=== PATIENT | female | born 1990 | race Caucasian/White ===

== ENCOUNTER 2017-04-07 22:16 | Emergency (ER) | payer BC ==
[~2017-04-07] VITALS: Ht 154.9 cm; Wt 56.7 kg
[2017-04-07] MEDS ORDERED: KEFLEX500 MG ORAL (22:36)
--- NOTE | 2017-04-07 22:37 | Emergency Room Report ---
History of Present Illness General Chief Complaint: Female Urogenital Problems Source: Patient Present Illness HPI Is a 26-year-old female with no past medical history. She presents with chief complaint of hematuria. She's been having some dysuria for about a week. Notice some blood in her urine today. She thought she may be on her menstrual flow. She present tampon and it was dry. Has mild urgency and frequency. Lower back pain. No fever chills but no nausea no vomiting. Allergies: Coded Allergies: No Known Allergies (Unverified , 04/07/17) Patient History Past Medical History: none, see triage record, old chart reviewed Past Surgical History: none Pertinent Family History: none Social History: Denies: smoking Now: No Immunizations: other Reviewed Nursing Documentation: PMH: Agreed, PSxH: Agreed Nursing Documentation-PMH Past Medical History: No Stated History Review of Systems Eye: Denies: eye pain, blurred vision ENT: Denies: ear pain, nose congestion, throat swelling Respiratory: Denies: cough, shortness of breath Cardiovascular: Denies: chest pain, palpitations Gastrointestinal: Denies: abdominal pain, diarrhea, nausea, vomiting Genitourinary: Reports: dysuria, hematuria Musculoskeletal: Denies: back pain, joint pain Skin: Denies: rash Neurological: Denies: headache, numbness Endocrine: Denies: increased thirst, increased urine Hematologic/Lymphatic: Denies: easy bruising All Other Systems: negative except mentioned in HPI Physical Exam Vital Signs Date Time Temp Pulse Resp B/P (MAP) Pulse Ox O2 Delivery O2 Flow Rate FiO2 04/07/17 22:20 98.8 82 18 129/77 98 Room Air vitals normal Sp02 EP Interpretation: reviewed, normal General Appearance: well appearing, no apparent distress, alert Head: normocephalic, atraumatic Eyes: bilateral eye PERRL, bilateral eye EOMI ENT: hearing grossly normal, normal pharynx Neck: full range of motion, supple, no meningismus Respiratory: chest non-tender, lungs clear, normal breath sounds Cardiovascular #1: regular rate, rhythm, no murmur Gastrointestinal: normal bowel sounds, non tender, no mass, no organomegaly, no bruit, non-distended Musculoskeletal: back normal, gait/station normal, normal range of motion Psychiatric: mood/affect normal Skin: warm/dry Medical Decision Making Diagnostic Impression: Primary Impression: Cystitis ER Course Patient present with symptoms consistent a UTI/cystitis. She looks very comfortable for ureteral stone. No evidence of pyelonephritis. No evidence of sepsis. We'll discharge home with antibiotics. Urine culture sent. Last Vital Signs Date Time Temp Pulse Resp B/P (MAP) Pulse Ox O2 Delivery O2 Flow Rate FiO2 04/07/17 22:20 98.8 82 18 129/77 98 Room Air Status: unchanged Disposition: HOME, SELF-CARE Condition: Stable Scripts Cephalexin* (KEFLEX*) 500 Mg Capsule 500 MG ORAL TID, #21 CAP 0 Refills Prov: IRISH CERNA M.D. 04/07/17 Patient Instructions: Urinary Tract Infection Additional Instructions: Followup with your Dr. in 7 days. You should feel significantly better in 2 days. If having increasing pain, fever, vomiting, or upper back pain return. We will call you if urine culture showed a resistantn bacteria to your antibiotic. IRISH CERNA M.D. Apr 07, 2017 22:37
[2017-04-07 22:42] VITALS: BP 129/77
[2017-04-07] MEDS ORDERED: Cephalexin 500mg cap ORAL ONE (22:45)
== END 2017-04-07 22:43 | disposition home or self-care (01) ==
LOC: EMR 22:25
DX: N30.91 Cystitis, unspecified with hematuria (principal); R39.15 Urgency of urination; R35.0 Frequency of micturition; R30.0 Dysuria
CPT/HCPCS: 87086; 99283

== ENCOUNTER 2017-04-22 15:51 | Inpatient (IN) | payer BC ==
[~2017-04-22] VITALS: Ht 154.9 cm; Wt 56.7 kg
[~2017-04-22 15:51] MED LIST: KEFLEX500 MG ORAL
[2017-04-22 16:05] VITALS: BP 130/82
[2017-04-22] MEDS ORDERED: Morphine Sulfate 4mg/ml Inj IVP ONE ×2 (16:30→17:45)
[2017-04-22] MEDS ORDERED: Solu-MEDROL 125mg Inj IVP ONE (16:30)
[2017-04-22] MEDS ORDERED: NKM (16:33)
[2017-04-22 16:43] LABS: APPEARANCE,URINE CLEAR; KETONES,URINE NEGATIVE (NEGATIVE); LEUKOCYTE ESTERASE ,URINE 1+ (NEGATIVE); NITRITE,URINE NEGATIVE (NEGATIVE); PH,URINE 6 (4.5-8.0); PROTEIN,URINE NEGATIVE (NEGATIVE); UROBILINOGEN,URINE NORMAL MG/DL (0.0-1.0)
[2017-04-22 16:49] LABS: BASOPHILS % (AUTO) 0.9 % (0.0-2.0); EOSINOPHILS % (AUTO) 0.8 % (0.0-3.0); MEAN CORPUSCULAR HEMOGLOBIN 34.3 PG (27.0-31.0); MEAN CORPUSCULAR HGB CONC 35.7 G/DL (32.0-36.0); MEAN CORPUSCULAR VOLUME 96 FL (80-99); MEAN PLATELET VOLUME 6.2 FL (6.5-10.1); MONOCYTES % (AUTO) 6.5 % (1.0-10.0); PLATELET COUNT 262 K/UL (150-450); RED BLOOD COUNT 4.17 M/UL (4.20-5.40); RED CELL DISTRIBUTION WIDTH 10.7 % (11.6-14.8); WHITE BLOOD COUNT 7.3 K/UL (4.8-10.8)
[2017-04-22 16:51] LABS: RBC,URINE 0-2 /HPF (0 - 2)
[2017-04-22 16:52] LABS: BACTERIA,URINE FEW /HPF; SQUAMOUS EPITHELIAL CELL,UR MODERATE /LPF (NONE/OCC)
[2017-04-22 16:53] LABS: MUCUS,URINE MODERATE /LPF (NONE/OCC)
[2017-04-22 17:10] LABS: ALANINE AMINOTRANSFERASE 13 U/L (3-33); ALBUMIN/GLOBULIN RATIO 1.3 (1.0-2.7); ANION GAP 11 (5-15); ASPARTATE AMINO TRANSFERASE 24 U/L (5-40); CALCIUM 9.9 mg/dL (8.6-10.2); CARBON DIOXIDE 27 mEQ/L (20-30); CHLORIDE 103 mEQ/L (98-107); CREATININE 0.7 mg/dL (0.5-0.9); GLOMERULAR FILTRATION RATE > 60 mL/min (>60); HEMOLYSIS 104; LIPASE 31 U/L (< 60); POTASSIUM 4.7 mEQ/L (3.4-4.9); SODIUM 141 mEQ/L (135-145); TOTAL PROTEIN 7.7 g/dL (6.6-8.7)
[2017-04-22 18:02] VITALS: BP 128/79
[2017-04-22 20:00] VITALS: BP 96/57
--- NOTE | 2017-04-22 20:31 | Emergency Room Report ---
History of Present Illness General Chief Complaint: Nausea, Vomiting, and Diarrhea Source: Patient Present Illness HPI 26-year-old female presents ED complaining of abdominal pain and diarrhea x1 day. Patient has history of ulcerative colitis and states she is having a flareup. Patient recently moved here and does not have a PMD here. Patient states the pain as a 9/10, sharp, nonradiating. Notes blood in her stool. Denies fevers or chills. Denies nausea or vomiting. Patient states her pain is typically relieved with steroids, pain medications and remicade infusion. Denies chest pain or shortness of breath. No other aggravating or leading factors. Denies any other associated symptoms Allergies: Coded Allergies: No Known Allergies (Unverified , 04/07/17) Patient History Past Medical History: other - colitis Past Surgical History: none Pertinent Family History: none Social History: Denies: smoking, alcohol use, drug use Last Menstrual Period: 04/14/17 Now: No Immunizations: UTD Reviewed Nursing Documentation: PMH: Agreed, PSxH: Agreed Nursing Documentation-PMH Past Medical History: No History, Except For Hx Gastrointestinal Problems: Yes - colitis Review of Systems All Other Systems: negative except mentioned in HPI Physical Exam Vital Signs Date Time Temp Pulse Resp B/P (MAP) Pulse Ox O2 Delivery O2 Flow Rate FiO2 04/22/17 16:01 98.1 100 16 127/81 97 Room Air Sp02 EP Interpretation: reviewed, normal General Appearance: no apparent distress, alert, GCS 15, non-toxic Head: normocephalic, atraumatic Eyes: bilateral eye normal inspection, bilateral eye PERRL ENT: hearing grossly normal, normal pharynx, no angioedema, normal voice Neck: full range of motion, supple/symm/no masses Respiratory: chest non-tender, lungs clear, normal breath sounds, speaking full sentences Cardiovascular #1: regular rate, rhythm, no edema Cardiovascular #2: 2+ carotid (R), 2+ carotid (L), 2+ radial (R), 2+ radial (L) , 2+ dorsalis pedis (R), 2+ dorsalis pedis (L) Gastrointestinal: normal bowel sounds, soft, non-distended, no guarding, no rebound, tenderness Rectal: deferred Genitourinary: normal inspection, no CVA tenderness Musculoskeletal: back normal, gait/station normal, normal range of motion, non- tender Neurologic: alert, oriented x3, responsive, motor strength/tone normal, sensory intact, speech normal Psychiatric: judgement/insight normal, memory normal, mood/affect normal, no suicidal/homicidal ideation Reflexes: 3+ bicep (R), 3+ bicep (L), 3+ tricep (R), 3+ tricep (L), 3+ knee (R) , 3+ knee (L) Skin: normal color, no rash, warm/dry, well hydrated Lymphatic: no adenopathy Medical Decision Making Diagnostic Impression: Primary Impression: Ulcerative colitis Qualified Codes: K51.811 - Other ulcerative colitis with rectal bleeding ER Course Hospital Course 26 yo F presents to ED c/o abdominal pain. 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 After initial history and physical I ordered labs, IV fluids, UA, pain medications Labs - no leukocytosis noted, Hb/Hct stable. electrolytes ok Patient has had multiple CTs in the past, given patient's age we will defer CT for now Patient continues to have pain. Will likely require continued pain medications , steroids and GI consult Patient will be admitted to Dr Childs service. I feel this is a highly complex case requiring extensive working including EKG/ Rhythm strip, Xray/CT/US, Blood/urine lab work, repeat exams while in ED, and administration of strong opiates/narcotics for pain control, admission to hospital or close patient follow up. Diagnosis -ulcerative colitis Patient admitted to hospital in serious condition Labs Test 04/22/17 16:10 White Blood Count 7.3 K/UL (4.8-10.8) Red Blood Count 4.17 M/UL (4.20-5.40) Hemoglobin 14.3 G/DL (12.0-16.0) Hematocrit 40.0 % (37.0-47.0) Mean Corpuscular Volume 96 FL (80-99) Mean Corpuscular Hemoglobin 34.3 PG (27.0-31.0) Mean Corpuscular Hemoglobin Concent 35.7 G/DL (32.0-36.0) Red Cell Distribution Width 10.7 % (11.6-14.8) Platelet Count 262 K/UL (150-450) Mean Platelet Volume 6.2 FL (6.5-10.1) Neutrophils (%) (Auto) 58.0 % (45.0-75.0) Lymphocytes (%) (Auto) 34.0 % (20.0-45.0) Monocytes (%) (Auto) 6.5 % (1.0-10.0) Eosinophils (%) (Auto) 0.8 % (0.0-3.0) Basophils (%) (Auto) 0.9 % (0.0-2.0) Urine Color Yellow Urine Appearance Clear Urine pH 6 (4.5-8.0) Urine Specific [place] 1.020 (1.005-1.035) Urine Protein Negative (NEGATIVE) Urine Glucose (UA) Negative (NEGATIVE) Urine Ketones Negative (NEGATIVE) Urine Occult Blood Negative (NEGATIVE) Urine Nitrite Negative (NEGATIVE) Urine Bilirubin Negative (NEGATIVE) Urine Urobilinogen Normal MG/DL (0.0-1.0) Urine Leukocyte Esterase 1+ (NEGATIVE) Urine RBC 0-2 /HPF (0 - 2) Urine WBC 2-4 /HPF (0 - 2) Urine Squamous Epithelial Cells Moderate /LPF (NONE/OCC) Urine Bacteria Few /HPF (NONE) Urine Mucus Moderate /LPF (NONE/OCC) Urine HCG, Qualitative Negative Sodium Level 141 mEQ/L (135-145) Potassium Level 4.7 mEQ/L (3.4-4.9) Chloride Level 103 mEQ/L (98-107) Carbon Dioxide Level 27 mEQ/L (20-30) Anion Gap 11 (5-15) Blood Urea Nitrogen 9 mg/dL (7-23) Creatinine 0.7 mg/dL (0.5-0.9) Estimat Glomerular Filtration Rate > 60 mL/min (>60) Glucose Level 117 mg/dL (74-106) Calcium Level 9.9 mg/dL (8.6-10.2) Total Bilirubin 0.7 mg/dL (0.0-1.2) Aspartate Amino Transf (AST/SGOT) 24 U/L (5-40) Alanine Aminotransferase (ALT/SGPT) 13 U/L (3-33) Alkaline Phosphatase 66 U/L (35-104) Total Protein 7.7 g/dL (6.6-8.7) Albumin 4.4 g/dL (3.5-5.2) Globulin 3.3 g/dL Albumin/Globulin Ratio 1.3 (1.0-2.7) Lipase 31 U/L (< 60) Last Vital Signs Date Time Temp Pulse Resp B/P (MAP) Pulse Ox O2 Delivery O2 Flow Rate FiO2 04/22/17 20:00 97.5 61 20 96/57 95 Room Air Status: improved Disposition: ADMITTED INPATIENT Condition: Serious Referrals: NOT CHOSEN IPA/,REFERRING (PCP) ANDREW NATHAN M.D. Apr 22, 2017 20:31
--- NOTE | 2017-04-22 21:51 | General Progress Note ---
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 Recommendations - Will try to avoid systemic steroids for now - Begin BID rectal steroid enemas and max dose mesalamine to bridge to next therapy - check stool cultures and CMV titers - Remicade not available at [facility] --> will arrange as outpt, or consider other anti TNF or Entyvio - DVT prophylaxis Subjective Allergies: Coded Allergies: No Known Allergies (Unverified , 04/07/17) Objective Last 24 Hour Vital Signs Date Time Temp Pulse Resp B/P (MAP) Pulse Ox O2 Delivery O2 Flow Rate FiO2 04/22/17 20:00 97.5 61 20 96/57 95 Room Air 04/22/17 18:58 97.9 84 14 118/75 100 Room Air 04/22/17 18:31 97.9 04/22/17 18:02 97.9 80 15 128/79 99 Room Air 04/22/17 17:08 98.1 04/22/17 16:05 98.0 85 16 130/82 97 Room Air 04/22/17 16:01 98.1 100 16 127/81 97 Room Air Intake and Output 04/22/17 04/23/17 19:00 07:00 Intake Total 1000 ml Balance 1000 ml Intake IV Total 1000 ml # Voids 1 # Bowel Movements 5 Laboratory Tests 04/22/17 16:10: White Blood Count 7.3, Red Blood Count 4.17L, Hemoglobin 14.3, Hematocrit 40.0, Mean Corpuscular Volume 96, Mean Corpuscular Hemoglobin 34.3H, Mean Corpuscular Hemoglobin Concent 35.7, Red Cell Distribution Width 10.7L, Platelet Count 262, Mean Platelet Volume 6.2L, Neutrophils (%) (Auto) 58.0, Lymphocytes (%) (Auto) 34.0, Monocytes (%) (Auto) 6.5, Eosinophils (%) (Auto) 0.8, Basophils (%) (Auto ) 0.9, Urine Color Yellow, Urine Appearance Clear, Urine pH 6, Urine Specific [place] 1.020, Urine Protein Negative, Urine Glucose (UA) Negative, Urine Ketones Negative, Urine Occult Blood Negative, Urine Nitrite Negative, Urine Bilirubin Negative, Urine Urobilinogen Normal, Urine Leukocyte Esterase 1+H, Urine RBC 0-2, Urine WBC 2-4, Urine Squamous Epithelial Cells ModerateH, Urine Bacteria Few, Urine Mucus ModerateH, Urine HCG, Qualitative Negative, Sodium Level 141, Potassium Level 4.7, Chloride Level 103, Carbon Dioxide Level 27, Anion Gap 11, Blood Urea Nitrogen 9, Creatinine 0.7, Estimat Glomerular Filtration Rate > 60, Glucose Level 117H, Calcium Level 9.9, Total Bilirubin 0.7 , Aspartate Amino Transf (AST/SGOT) 24, Alanine Aminotransferase (ALT/SGPT) 13, Alkaline Phosphatase 66, Total Protein 7.7, Albumin 4.4, Globulin 3.3, Albumin/ Globulin Ratio 1.3, Lipase 31 Height (Feet): 5 Height (Inches): 1.00 Weight (Pounds): 125 TALIA MANN Apr 22, 2017 21:51
[2017-04-22] MEDS: Mesalamine 400mg cap ORAL SCH (22:17)
[2017-04-22] MEDS: Hydrocortisone Enema Susp 60ml RECTAL SCH (23:13)
[2017-04-23] VITALS: BP 102/54
[2017-04-23] MEDS ORDERED: Morphine Sulfate 2mg/ml Inj IM PRN (02:15)
[2017-04-23] MEDS: Mesalamine 400mg cap ORAL SCH ×3 (05:32→21:12)
--- NOTE | 2017-04-23 06:00 | History and Physical Report ---
DATE OF ADMISSION: 04/22/2017 Reason For Admission: Ulcerative colitis flare with uncontrolled pain. History Of Present Illness: This is a 26-year-old female. She has a history of ulcerative colitis. She has failed multiple conventional treatments in the past. She is new to [place] and had been off of some treatment during this move period namely Remicade. Over the past day or so, she has had increasing diarrhea and abdominal pain and has not been able to manage at home. She also noted blood in her stool. She has not had fevers or chills. She has had some nausea, but no vomiting. She denies any other constitutional symptoms including fevers or chills. PAST MEDICAL HISTORY: Otherwise unremarkable. ALLERGIES: None. MEDICATIONS: Reviewed. FAMILY HISTORY: Not remarkable. SOCIAL HISTORY: Negative for smoking, alcohol, or substance abuse. Review Of Systems: A 10-point review of systems performed pertinent data outlined above. Otherwise, all systems negative. PHYSICAL EXAMINATION: Vital Signs: She is afebrile. Blood pressure 127/81, pulse 100, respiratory rate 16, and oxygen saturation on room air 97%. HEENT: Conjunctivae are pink. Sclerae are anicteric. Oropharynx clear. Mucous membranes moist. NECK: Supple. Jugular venous pressure normal. LUNGS: Clear. Cardiac: Regular rhythm and rate. Normal S1 and S2 with no murmur, rub, or gallop. ABDOMEN: Soft and nontender. No guarding or rebound. RECTAL: Deferred to GI exchange consultant. EXTREMITIES: Without edema. NEUROLOGIC: Nonfocal. SKIN: Without rash or ecchymoses. No bruising. Laboratory And Diagnostic Data: White count 7.3 and hemoglobin 14.3. Urinalysis with no active sediment other than 2 to 4 white cells and leukocyte esterase positive. Chemistry panel within normal limits. Liver function studies within normal limits. IMPRESSION: 1. Ulcerative colitis with acute flare. 2. Abdominal pain, uncontrolled. 3. Gastrointestinal bleeding. PLAN: 1. Hydration. 2. Limited diet. 3. Hydration by IV route. 4. Intravenous pain therapy. 5. Gastrointestinal consultation. 6. Consider intravenous steroids versus Remicade. Josh Martinez M.D. DR: EVELIA JOB#: [id number] CC:
[2017-04-23 07:40] LABS: HEMOLYSIS 2; IRON 85 ug/dL (37-145); TOTAL IRON BINDING CAPACITY 355 ug/dL (250-400)
[2017-04-23 08:56] VITALS: BP 110/61
[2017-04-23 08:58] LABS: ALANINE AMINOTRANSFERASE 14 U/L (3-33); ALBUMIN/GLOBULIN RATIO 1.4 (1.0-2.7); ANION GAP 11 (5-15); ASPARTATE AMINO TRANSFERASE 16 U/L (5-40); CALCIUM 9.5 mg/dL (8.6-10.2); CARBON DIOXIDE 26 mEQ/L (20-30); CHLORIDE 102 mEQ/L (98-107); CREATININE 0.6 mg/dL (0.5-0.9); GLOMERULAR FILTRATION RATE > 60 mL/min (>60); HEMOLYSIS 5; MAGNESIUM 1.9 mg/dL (1.7-2.5); POTASSIUM 4.1 mEQ/L (3.4-4.9); SODIUM 139 mEQ/L (135-145); TOTAL PROTEIN 7.2 g/dL (6.6-8.7)
[2017-04-23] MEDS: Hydrocortisone Enema Susp 60ml RECTAL SCH ×2 (09:00→21:07)
[2017-04-23 09:10] VITALS: BP 110/61
--- NOTE | 2017-04-23 09:10 | General Progress Note ---
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 Recommendations - Will try to avoid systemic steroids for now - BID rectal steroid enemas and max dose mesalamine to bridge to next therapy - check stool cultures and CMV titers - [place] [facility] [place] will arrange as outpt, or consider other anti TNF or Entyvio - DVT prophylaxis Subjective ROS Limited/Unobtainable: Yes Allergies: Coded Allergies: No Known Allergies (Unverified , 04/07/17) Subjective feeling better no BM Objective Last 24 Hour Vital Signs Date Time Temp Pulse Resp B/P (MAP) Pulse Ox O2 Delivery O2 Flow Rate FiO2 04/23/17 08:56 98.1 79 18 110/61 98 Room Air 04/23/17 00:00 97.2 72 20 102/54 96 Room Air 04/22/17 20:00 97.5 61 20 96/57 95 Room Air 04/22/17 18:58 97.9 84 14 118/75 100 Room Air 04/22/17 18:31 97.9 04/22/17 18:02 97.9 80 15 128/79 99 Room Air 04/22/17 17:08 98.1 04/22/17 16:05 98.0 85 16 130/82 97 Room Air 04/22/17 16:01 98.1 100 16 127/81 97 Room Air Laboratory Tests 04/22/17 16:10: White Blood Count 7.3, Red Blood Count 4.17L, Hemoglobin 14.3, Hematocrit 40.0, Mean Corpuscular Volume 96, Mean Corpuscular Hemoglobin 34.3H, Mean Corpuscular Hemoglobin Concent 35.7, Red Cell Distribution Width 10.7L, Platelet Count 262, Mean Platelet Volume 6.2L, Neutrophils (%) (Auto) 58.0, Lymphocytes (%) (Auto) 34.0, Monocytes (%) (Auto) 6.5, Eosinophils (%) (Auto) 0.8, Basophils (%) (Auto ) 0.9, Urine Color Yellow, Urine Appearance Clear, Urine pH 6, Urine Specific [place] 1.020, Urine Protein Negative, Urine Glucose (UA) Negative, Urine Ketones Negative, Urine Occult Blood Negative, Urine Nitrite Negative, Urine Bilirubin Negative, Urine Urobilinogen Normal, Urine Leukocyte Esterase 1+H, Urine RBC 0-2, Urine WBC 2-4, Urine Squamous Epithelial Cells ModerateH, Urine Bacteria Few, Urine Mucus ModerateH, Urine HCG, Qualitative Negative, Sodium Level 141, Potassium Level 4.7, Chloride Level 103, Carbon Dioxide Level 27, Anion Gap 11, Blood Urea Nitrogen 9, Creatinine 0.7, Estimat Glomerular Filtration Rate > 60, Glucose Level 117H, Calcium Level 9.9, Total Bilirubin 0.7 , Aspartate Amino Transf (AST/SGOT) 24, Alanine Aminotransferase (ALT/SGPT) 13, Alkaline Phosphatase 66, Total Protein 7.7, Albumin 4.4, Globulin 3.3, Albumin/ Globulin Ratio 1.3, Lipase 31 04/23/17 05:25: Sodium Level 139, Potassium Level 4.1, Chloride Level 102, Carbon Dioxide Level 26, Anion Gap 11, Blood Urea Nitrogen 11, Creatinine 0.6, Estimat Glomerular Filtration Rate > 60, Glucose Level 132H, Calcium Level 9.5, Total Bilirubin 0.5 , Aspartate Amino Transf (AST/SGOT) 16, Alanine Aminotransferase (ALT/SGPT) 14, Alkaline Phosphatase 63, Total Protein 7.2, Albumin 4.2, Globulin 3.0, Albumin/ Globulin Ratio 1.4, Magnesium Level 1.9, Iron Level 85, Total Iron Binding Capacity 355, Percent Iron Saturation 24, Unsaturated Iron Binding 270, Thyroid Stimulating Hormone (TSH) [Pending], Human Chorionic Gonadotropin, Qual Negative , Cytomegalovirus DNA Qual (PCR) [Pending] Height (Feet): 5 Height (Inches): 1.00 Weight (Pounds): 125 General Appearance: alert EENT: normal ENT inspection Neck: supple Cardiovascular: normal rate Respiratory/Chest: lungs clear Abdomen: normal bowel sounds, soft Extremities: non-tender BONIFACIO VALDES Apr 23, 2017 09:10
[2017-04-23 13:03] VITALS: BP 108/56
[2017-04-23] MEDS ORDERED: Flu Vaccine Quadrivalent 0.5ml IM ONE (14:00)
[2017-04-23] MEDS ORDERED: Pneumococcal Vaccine 25mcg/0.5ml IM ONE (14:00)
[2017-04-23 17:44] VITALS: BP 102/66
[2017-04-23 20:00] VITALS: BP 101/66
[2017-04-23] MEDS: Morphine Sulfate 2mg/ml Inj IV PRN (20:09)
[2017-04-24] VITALS: BP 95/66
[2017-04-24 04:00] VITALS: BP 97/68
[2017-04-24] MEDS: Mesalamine 400mg cap ORAL SCH ×3 (05:54→21:18)
--- NOTE | 2017-04-24 07:00 | Progress Note ---
DATE: 04/23/2017 INTERNAL MEDICINE PROGRESS NOTE Subjective: The patient is still having diarrhea and bloody stools. Abdominal pain has diminished. Electrolytes are reviewed and within normal limits. Repeat hemoglobin is pending. OBJECTIVE: Vital Signs: Afebrile, blood pressure 110/61, pulse 79, and respiratory rate 18. LUNGS: Clear. CARDIAC: Regular. ABDOMEN: Soft and nontender focally and no edema. NEUROLOGIC: Nonfocal. IMPRESSION: Ulcerative colitis flare. PLAN: 1. Cortisone enemas. 2. Mesalamine. 3. Outpatient Remicade. 4. Pain control. 5. Follow up hemoglobin level for colonoscopy as an outpatient. 6. Discharge once pain and bowel movements are controlled with no active GI bleeding. Josh Martinez M.D. DR: EVELIA JOB#: [id number] CC:
[2017-04-24 07:40] LABS: BASOPHILS % (AUTO) 0.4 % (0.0-2.0); EOSINOPHILS % (AUTO) 0.3 % (0.0-3.0); LYMPHOCYTES % (AUTO) 25.2 % (20.0-45.0); MEAN CORPUSCULAR HEMOGLOBIN 32.4 PG (27.0-31.0); MEAN CORPUSCULAR HGB CONC 33.2 G/DL (32.0-36.0); MEAN CORPUSCULAR VOLUME 98 FL (80-99); MEAN PLATELET VOLUME 6.4 FL (6.5-10.1); MONOCYTES % (AUTO) 5.9 % (1.0-10.0); NEUTROPHILS % (AUTO) 68.3 % (45.0-75.0); PLATELET COUNT 260 K/UL (150-450); RED BLOOD COUNT 3.97 M/UL (4.20-5.40); RED CELL DISTRIBUTION WIDTH 11.2 % (11.6-14.8); WHITE BLOOD COUNT 9.5 K/UL (4.8-10.8)
[2017-04-24 08:00] VITALS: BP 113/69
[2017-04-24] MEDS: Hydrocortisone Enema Susp 60ml RECTAL SCH ×2 (09:10→21:18)
--- NOTE | 2017-04-24 09:51 | General Progress Note ---
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 Recommendations - Will try to avoid systemic steroids for now - BID rectal steroid enemas and max dose mesalamine to bridge to next therapy - check stool cultures and CMV titers - Rem[place] not available [place] [facility] [place] will arrange as outpt, or consider other anti TNF or Entyvio - DVT prophylaxis -check ESR and CRP Subjective ROS Limited/Unobtainable: Yes Allergies: Coded Allergies: No Known Allergies (Unverified , 04/07/17) Subjective feeling worse today Objective Last 24 Hour Vital Signs Date Time Temp Pulse Resp B/P (MAP) Pulse Ox O2 Delivery O2 Flow Rate FiO2 04/24/17 04:00 97.6 56 18 97/68 92 Room Air 04/24/17 00:00 97.9 76 18 95/66 98 Room Air 04/23/17 20:00 97.7 68 18 101/66 97 Room Air 04/23/17 17:44 98.2 73 18 102/66 97 Room Air 04/23/17 13:03 97.5 75 19 108/56 96 Room Air Laboratory Tests 04/24/17 05:10: White Blood Count 9.5, Red Blood Count 3.97L, Hemoglobin 12.9, Hematocrit 38.8, Mean Corpuscular Volume 98, Mean Corpuscular Hemoglobin 32.4H, Mean Corpuscular Hemoglobin Concent 33.2, Red Cell Distribution Width 11.2L, Platelet Count 260, Mean Platelet Volume 6.4L, Neutrophils (%) (Auto) 68.3, Lymphocytes (%) (Auto) 25.2, Monocytes (%) (Auto) 5.9, Eosinophils (%) (Auto) 0.3, Basophils (%) (Auto ) 0.4 Height (Feet): 5 Height (Inches): 1.00 Weight (Pounds): 125 General Appearance: alert EENT: normal ENT inspection Neck: supple Cardiovascular: normal rate Respiratory/Chest: lungs clear Abdomen: normal bowel sounds, non tender, soft Extremities: non-tender BONIFACIO VALDES Apr 24, 2017 09:51
[2017-04-24] MEDS: Morphine Sulfate 2mg/ml Inj IV PRN ×2 (11:12→18:24)
[2017-04-24 12:00] VITALS: BP 109/60
[2017-04-24 16:00] VITALS: BP 100/61
[2017-04-24] MEDS ORDERED: Miralax 17gm pkt ORAL SCH (16:00)
[2017-04-24] MEDS ORDERED: Docusate 100mg cap ORAL SCH (18:00)
[2017-04-24 20:00] VITALS: BP 110/65
[2017-04-24] MEDS: Morphine Sulfate 4mg/ml Inj IV PRN (22:57)
[2017-04-25] VITALS: BP 110/70
--- NOTE | 2017-04-25 03:00 | Progress Note ---
DATE: 04/24/2017 INTERNAL MEDICINE PROGRESS NOTE Subjective: The patient feels worse, more abdominal pain noted. She needs more morphine. She still has rectal bleeding with chunks of clot or stool. No dizziness. OBJECTIVE: VITAL SIGNS: Blood pressure 97/68, pulse 56, and respirations 18. NECK: Supple. LUNGS: Clear. CARDIAC: Regular. ABDOMEN: Soft. No focal tenderness, guarding, or rebound. EXTREMITIES: No edema. SKIN: Without rash. Laboratory Data: Hemoglobin has decreased from 14.3 on admission to 12.9 today. IMPRESSION: 1. Ulcerative colitis with flare. 2. Hematochezia. 3. Abdominal pain. PLAN: 1. Continue intravenous morphine. 2. Continue immunosuppressive therapy per Dr. White. 3. Not stable for discharge. 4. Serial hemoglobin studies. Josh Martinez M.D. DR: EVANGELINA JOB#: [id number] CC:
[2017-04-25 04:00] VITALS: BP 109/62
[2017-04-25] MEDS: Mesalamine 400mg cap ORAL SCH ×3 (05:20→21:37)
[2017-04-25] MEDS: Morphine Sulfate 4mg/ml Inj IV PRN ×3 (05:34→19:59)
[2017-04-25 06:53] LABS: BASOPHILS % (AUTO) 0.4 % (0.0-2.0); EOSINOPHILS % (AUTO) 0.5 % (0.0-3.0); LYMPHOCYTES % (AUTO) 29.1 % (20.0-45.0); MEAN CORPUSCULAR HEMOGLOBIN 33.1 PG (27.0-31.0); MEAN CORPUSCULAR HGB CONC 34.1 G/DL (32.0-36.0); MEAN CORPUSCULAR VOLUME 97 FL (80-99); MEAN PLATELET VOLUME 6.4 FL (6.5-10.1); MONOCYTES % (AUTO) 6.1 % (1.0-10.0); NEUTROPHILS % (AUTO) 63.9 % (45.0-75.0); PLATELET COUNT 237 K/UL (150-450); RED BLOOD COUNT 3.66 M/UL (4.20-5.40); RED CELL DISTRIBUTION WIDTH 10.9 % (11.6-14.8); WHITE BLOOD COUNT 7.7 K/UL (4.8-10.8)
[2017-04-25 07:07] LABS: ANION GAP 9 (5-15); CALCIUM 10.5 mg/dL (8.6-10.2); CARBON DIOXIDE 27 mEQ/L (20-30); CHLORIDE 102 mEQ/L (98-107); CREATININE 0.6 mg/dL (0.5-0.9); CRP QUANT < 0.3 mg/dL (< 0.5); GLOMERULAR FILTRATION RATE > 60 mL/min (>60); HEMOLYSIS 6; POTASSIUM 4.1 mEQ/L (3.4-4.9); SODIUM 138 mEQ/L (135-145)
[2017-04-25 08:00] VITALS: BP 97/50
[2017-04-25] MEDS ORDERED: Miralax 17gm pkt ORAL SCH (09:00)
--- NOTE | 2017-04-25 09:15 | Consultation ---
DATE OF CONSULTATION: 04/22/2017 GASTROENTEROLOGY CONSULTATION CONSULTING PHYSICIAN: Chetna White M.D. Chief Complaint: I was asked to see this patient by Dr. Josh Martinez for evaluation of colitis. History Of Present Illness: The patient is a 26-year-old white woman, who has left-sided ulcerative colitis, who has recently transferred her residence to [place] and is looking for new doctors. The patient was diagnosed with left-sided ulcerative colitis at age 17. She states she has been on multiple failed medication regimens in the past. She has been on multiple courses of steroids, and in her late teenage years, she was apparently hospitalized many times with colitis flare. She recalls having been on steroids multiple times and also being on various mesalamines including Asacol and Lialda. She recalls being on 6-mercaptopurine, but she states she had to stop this because of some hair loss and also it did not work very well. Eventually, she was placed on Remicade at age 21, but she states she has breakthrough symptoms even with this medication. Her dose has been doubled and her interval frequency has been reduced to 6 weeks. Her most recent regimen is Remicade 10 mg/kg, which is 600 mg for her with current intervention and given every 6 weeks. The patient states that throughout the first 4 weeks after the infusion, she still has two bowel movements per day, which are loose, and after 4-week renate to 6-week renate, she has diarrhea breakthrough until she gets her next infusion and this has been her regular pattern. She also has been given Lialda with Remicade, but still has breakthrough symptoms. She states that she was told no higher Remicade dose can be given. Her care was by Dr. Ace Buckner in [place] at phone number #[phone]. I briefly discussed care of this patient with the covering physician from this team. He will send some the patient's old documents to my office next week. The patient's last colonoscopy was in 2014 and her last Remicade infusion was in January 2017, which was about 3 months ago. The patient has been lost to treatment because of the move to [place] and her searching a new doctor. According to the patient's covering physician, the patient has had a history of CMV positivity years ago, but that has been resolved. The patient also has had a history of catheter related pulmonary embolism during one of her previous hospitalizations. Her latest QuantiFERON TB Gold was negative in December 2016 in [place]. The patient does have a family history of inflammatory bowel disease as described below. The patient does smoke one pack of cigarettes daily. Past Medical History: History of left-sided ulcerative colitis as described above, history of CMV colitis, and history of catheter-related pulmonary embolism. ALLERGIES: No known drug allergies. Family History: Positive for Crohn disease in the sister, ulcerative colitis in the aunt, and colon cancer in two grandparents. Social History: The patient is single. She does not drink, but she smokes a pack of cigarettes daily. She has moved to [place] with her boyfriend to work here. REVIEW OF SYSTEMS: Otherwise negative. PHYSICAL EXAMINATION: General: This is a well-developed and well-nourished white woman, seen in the emergency room. HEENT: Normocephalic and atraumatic. Sclerae anicteric. Oropharynx clear. NECK: Supple. CHEST: Clear to auscultation. CARDIOVASCULAR: Revealed a regular rate. Abdomen: Soft with some mild left-sided tenderness to palpation without guarding or rebound. EXTREMITIES: Revealed no edema. LABORATORY DATA: Noted. Assessment: This patient presents today with colitis flare and she has gone off of her Remicade infusions for about 3 months. It appears that even the double dose Remicade infusion, frequency of every six weeks, that she still has significant breakthrough symptoms and I suspect that she has developed Remicade antibodies. This can be measured next week as an outpatient, and if so, then the patient may benefit from switching to another anti-TNF medication versus some other newer agents such as Entyvio. For the time being, the patient does not appear to be very ill and and she is not anemic. She has had multiple courses of oral steroids in the past and would prefer to try to avoid systemic steroids. Steroid enemas can temporize, although they will not reach the higher portions of the descending colon. Mesalamines can also be given at a maximum dose for further therapy. If that failed to temporize, then the patient can be given a brief course of steroids again as a temporizing measure. 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 RECOMMENDATIONS: 1. Begin steroid enemas twice daily every 12 hours. 2. Asacol 1600 mg every 8 hours orally. 3. Follow laboratory parameters. 4. Outpatient followup next week for reevaluation. The patient will require complete reevaluation including endoscopy and colonoscopy, biopsies, Remicade antibiotic management. 5. Check stool cultures for completeness. 6. Check CMV PCR. Thank you for asking me to participate in the care of this patient. Chetna White M.D. DR: Cecy JOB#: [id number] CC: NICANOR
[2017-04-25] MEDS: Hydrocortisone Enema Susp 60ml RECTAL SCH ×2 (10:44→21:00)
[2017-04-25] MEDS: Docusate 100mg cap ORAL SCH ×2 (10:44→17:49)
--- NOTE | 2017-04-25 10:56 | General Progress Note ---
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 Recommendations - BID rectal steroid enemas x 2-3 more days, then qhs - check stool cultures and f/u CMV titers - outpatient Remicade vs other biologics - DVT prophylaxis - continue mesalamine - d/c planning per PMD Subjective Allergies: Coded Allergies: No Known Allergies (Unverified , 04/07/17) Subjective No BM over weekend scant blood per rectum cramps better tolerating PO Objective Last 24 Hour Vital Signs Date Time Temp Pulse Resp B/P (MAP) Pulse Ox O2 Delivery O2 Flow Rate FiO2 04/25/17 04:00 97.8 68 18 109/62 97 Room Air 04/25/17 00:00 98.1 60 18 110/70 98 Room Air 04/24/17 20:00 97.7 66 16 110/65 97 Room Air 04/24/17 16:00 97.9 65 18 100/61 98 Room Air 04/24/17 12:00 97.9 63 17 109/60 98 Room Air Laboratory Tests 04/25/17 04:45: White Blood Count 7.7, Red Blood Count 3.66L, Hemoglobin 12.1, Hematocrit 35.6L , Mean Corpuscular Volume 97, Mean Corpuscular Hemoglobin 33.1H, Mean Corpuscular Hemoglobin Concent 34.1, Red Cell Distribution Width 10.9L, Platelet Count 237, Mean Platelet Volume 6.4L, Neutrophils (%) (Auto) 63.9, Lymphocytes (%) (Auto) 29.1, Monocytes (%) (Auto) 6.1, Eosinophils (%) (Auto) 0.5, Basophils (%) (Auto) 0.4, Sodium Level 138, Potassium Level 4.1, Chloride Level 102, Carbon Dioxide Level 27, Anion Gap 9, Blood Urea Nitrogen 8, Creatinine 0.6, Estimat Glomerular Filtration Rate > 60, Glucose Level 101, Calcium Level 10.5H, C-Reactive Protein, Quantitative < 0.3 Height (Feet): 5 Height (Inches): 1.00 Weight (Pounds): 125 Objective WDWN WW NCAT supple CTA RRR soft ND NT no edema non focal TALIA MANN Apr 25, 2017 10:55
[2017-04-25 12:00] VITALS: BP 102/64
[2017-04-25 16:00] VITALS: BP 125/53
[2017-04-25 20:00] VITALS: BP 94/62
[2017-04-25] MEDS ORDERED: Zolpidem 5mg tab ORAL PRN (23:15)
[2017-04-26] MEDS ORDERED: Norco 5mg/325mg tab ORAL PRN
[2017-04-26] MEDS ORDERED: Morphine Sulfate 4mg/ml Inj IV PRN (02:30)
[2017-04-26 04:00] VITALS: BP 118/67
[2017-04-26] MEDS: Mesalamine 400mg cap ORAL SCH (05:30)
--- NOTE | 2017-04-26 06:30 | Progress Note ---
DATE: 04/25/2017 INTERNAL MEDICINE PROGRESS NOTE Subjective: The patient has less bleeding and some small stools today, however, abdominal pain persists and she has still required morphine for control. No nausea or vomiting. Tolerating diet. OBJECTIVE: VITAL SIGNS: Stable and afebrile. NECK: Supple. LUNGS: Clear. CARDIAC: Regular. Normal S1 and S2. ABDOMEN: Soft. No focal tenderness, guarding, or rebound. EXTREMITIES: No edema. IMPRESSION: 1. Ulcerative colitis with flare. 2. Gastrointestinal bleeding. 3. Continued abdominal pain. PLAN: 1. Taper off IV pain medications in anticipation of discharge. 2. Continue mesalamine and cortisone enemas. 3. Remicade to be arranged as an outpatient. 4. Serial hemoglobin. 5. Attempt transition to oral pain control. 6. Gastrointestinal follow up. Josh Martinez M.D. DR: Perla JOB#: [id number] CC:
[2017-04-26 06:33] LABS: BASOPHILS % (AUTO) 0.4 % (0.0-2.0); EOSINOPHILS % (AUTO) 0.1 % (0.0-3.0); LYMPHOCYTES % (AUTO) 19.3 % (20.0-45.0); MEAN CORPUSCULAR HEMOGLOBIN 32.6 PG (27.0-31.0); MEAN CORPUSCULAR HGB CONC 33.7 G/DL (32.0-36.0); MEAN CORPUSCULAR VOLUME 97 FL (80-99); MEAN PLATELET VOLUME 6.3 FL (6.5-10.1); MONOCYTES % (AUTO) 5.3 % (1.0-10.0); NEUTROPHILS % (AUTO) 74.9 % (45.0-75.0); PLATELET COUNT 260 K/UL (150-450); RED CELL DISTRIBUTION WIDTH 10.8 % (11.6-14.8); WHITE BLOOD COUNT 9.5 K/UL (4.8-10.8)
[2017-04-26 08:00] VITALS: BP 107/66
[2017-04-26] MEDS: Hydrocortisone Enema Susp 60ml RECTAL SCH (09:36)
[2017-04-26] MEDS: Docusate 100mg cap ORAL SCH (09:36)
[2017-04-26 12:00] VITALS: BP 137/70
[2017-04-26] MEDS ORDERED: ASACOL HD800 MG ORAL ×2 (13:12→13:14)
[2017-04-26] MEDS ORDERED: COLACE100 MG ORAL (13:15)
[2017-04-26] MEDS ORDERED: CORTENEMA100 MG/60 RC (13:17)
[2017-04-26] MEDS ORDERED: NORCO 5-325 TA1 EAC1 ORAL (13:19)
--- NOTE | 2017-04-26 20:58 | General Progress Note ---
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 Recommendations - BID rectal steroid enemas ---> change to qhs as of tomorrow night - check stool cultures and f/u CMV titers - outpatient Remicade vs other biologics - DVT prophylaxis - continue mesalamine - d/c planning per PMD Subjective Allergies: Coded Allergies: No Known Allergies (Unverified , 04/07/17) Subjective (+BM x 2 loose and with BRB pain better tolerating PO Objective Last 24 Hour Vital Signs Date Time Temp Pulse Resp B/P (MAP) Pulse Ox O2 Delivery O2 Flow Rate FiO2 04/26/17 12:00 97.2 75 20 137/70 98 Room Air 04/26/17 08:00 97.0 70 18 107/66 97 Room Air 04/26/17 06:20 97.0 04/26/17 04:00 97.0 61 18 118/67 97 Room Air Laboratory Tests 04/26/17 05:30: White Blood Count 9.5, Red Blood Count 3.90L, Hemoglobin 12.7, Hematocrit 37.8, Mean Corpuscular Volume 97, Mean Corpuscular Hemoglobin 32.6H, Mean Corpuscular Hemoglobin Concent 33.7, Red Cell Distribution Width 10.8L, Platelet Count 260, Mean Platelet Volume 6.3L, Neutrophils (%) (Auto) 74.9, Lymphocytes (%) (Auto) 19.3L, Monocytes (%) (Auto) 5.3, Eosinophils (%) (Auto) 0.1, Basophils (%) (Auto ) 0.4 Height (Feet): 5 Height (Inches): 1.00 Weight (Pounds): 125 Objective WDWN WW NCAT supple CTA RRR soft ND NT no edema non focal TALIA MANN Apr 26, 2017 20:58
--- NOTE | 2017-04-28 12:51 | Discharge Summary ---
Discharge Summary Hospital Course Date of Admission Apr 22, 2017 at 16:35 Date of Discharge Apr 26, 2017 at 10:45 Admitting Diagnosis ulcerative colitis HPI Mary Wilkins is a 26 year old female who was admitted on Apr 22, 2017 at 16: 35 for Ulcerative Colitis Hospital Course [id number] Discharge Discharge Disposition Patient was discharged to home Discharge Diagnoses: Ligia Brantley NP Apr 28, 2017 12:51
--- NOTE | 2017-04-29 05:45 | Discharge Summary 2 SIG ---
DATE OF ADMISSION: 04/22/2017 DATE OF DISCHARGE: 04/26/2017 MANAGER SUSTAINABILITY: Chetna White M.D. Brief Hospital Course: The patient is a 26-year-old female with history of ulcerative colitis since age 17 and had failed multiple conventional treatment in the past. She had multiple courses of steroids and had been on various mesalamine including Asacol and Lialda and recalls being on 6-mercaptopurine, but had to stop because of hair loss. She was placed on Remicade and was having breakthrough symptoms even with medication. She had been lost to treatment because of her move to [facility]. She was given mesalamine and cortisone enemas. Remicade is not available at [facility]. She was given pain control. There was noted drop in hemoglobin from admission. Hemoglobin levels were monitored. Stool cultures were done. Stool was negative for Salmonella, Shigella, or Campylobacter. Negative for C. difficile. Negative for ova and parasite. She was eventually transitioned to oral pain control and had been tolerating diet. She was eventually discharged home. FINAL DIAGNOSES: 1. Ulcerative colitis with flare. 2. Gastrointestinal bleed. 3. Status post failed 5-ASA, steroids, and 6-mercaptopurine. 4. History of catheter related deep venous thrombosis/pulmonary embolism. 5. History of cytomegalovirus. DISPOSITION: The patient was discharged home. DISCHARGE MEDICATIONS: Refer to medication list. Josh Martinez M.D. I have been assigned to dictate discharge summary on this account and I was not involved in the patient's management. Ligia Brantley N.P. DR: GABRIEL JOB#: [id number] CC:
== END 2017-04-26 10:45 | disposition home or self-care (01) | DRG 386 ==
LOC: EMR 16:22 → 4W 16:35 → EDBEDREQ 16:43
DX: K51.518 Left sided colitis with other complication (principal); K92.2 Gastrointestinal hemorrhage, unspecified; Z86.718 Personal history of other venous thrombosis and embolism; Z86.711 Personal history of pulmonary embolism; Z83.79 Family history of other diseases of the digestive system; F17.200 Nicotine dependence, unspecified, uncomplicated; Z91.14 Patient's other noncompliance with medication regimen
CPT/HCPCS: 36415; 80048; 80053; 81003; 81025; 83540; 83550; 83690; 83735; 84443; 84703; 85025; 86140; 87045; 87324; 87496; 90630; 90732; 99285; J2405